=== PATIENT | female | born 1990 | race Caucasian/White ===

== ENCOUNTER 2016-08-12 23:53 | Emergency (ER) | payer OTHER ==
[~2016-08-12] VITALS: Ht 167.6 cm; Wt 111.1 kg
[~2016-08-12 23:53] MED LIST: ACETAMINOPHEN-O1 TAB PO; AMOX/CLAV POT 81 TAB PO; AMOXICILLIN500 M2 PO; AMOXICILLIN500 MG PO; AMOXIL500 MG PO; ANAPROX DS550 MG PO; ANTIBIOTIC O500 U/GM TP; AUGMENTIN 875 M1 TAB PO; AUGMENTIN 875875 MG PO; BACID PROBIOTIC1 TAB PO; BACTRIM DS 8001 TA1 PO; BACTRIM DS 8001 TAB PO; CEPHALEXIN500 M1 PO; CIPRO500 MG PO; CIPROFLOXACIN500 MG PO; DARVOCET N 1001 TAB PO; FEOSOL325 MG PO; FLAGYL500 MG PO; FLOXIN 0.3% 00.25 ML OT; IBUPROFEN IB200 M1 PO; IMODIUM A-D2 MG PO; IRON325 M1 PO; KEFLEX500 MG PO; MACROBID100 M1 PO; MICROGESTIN FE1 TA1 PO; Motrin,Rufen800 MG PO; NITROFURANTOIN100 M2 PO; NKHM; PEPCID20 MG PO; PERCOCET 325 MG1 TA2 PO; PERCOCET 325 MG1 TA7 PO; PHENERGAN25 M1 PO; PRENATAL VITAMI1 TA4 PO; PRENATAL1 TA3 PO; PRENATAL1 TA7 PO; PROVENTIL0.09 MG/AC IH; PYRIDIUM200 M1 PO; PYRIDIUM200 MG PO; TYLENOL325 M1 PO; ULTRAM50 MG PO; VICO10300 PO; VICODIN 5/500 505 MG PO; ZITHROMAX Z PA250 MG PO; ZOFRAN ODT4 MG SL; ZOFRAN4 MG PO; Zofran4 MG PO
[2016-08-13 00:35] LABS: BASO % 0.2 % (0.0-1.0); EOS # 0.1 10*3/uL (0.0-0.4); EOS % 0.7 % (1.0-4.0); HEMATOCRIT 35.3 % (37.0-47.0); HEMOGLOBIN 11.8 g/dl (12.0-16.0); LYMPH # 2.3 10*3/uL (1.3-4.4); LYMPH % 16.9 % (27.0-41.0); MEAN CELL VOLUME 90.3 fl (81.0-99.0); MEAN CORPUSCULAR HGB 30.2 pg (27.0-31.0); MEAN CORPUSCULAR HGB CONC 33.4 g/dl (33.0-37.0); MEAN PLATELET VOLUME 9.6 fl (9.6-12.3); MONO # 1.3 10*3/uL (0.1-1.0); MONO % 9.3 % (3.0-9.0); NEUT # 9.8 10*3/uL (2.3-7.9); NEUT % 72.6 % (47.0-73.0); PLATELET COUNT AUTOMATED 372 10*3/uL (130-400); RED BLOOD COUNT 3.91 10*6/uL (4.10-5.10); RED CELL DISTRI WIDTH 12.5 % (0-14.5); WHITE BLOOD COUNT 13.5 10*3/uL (4.8-10.8)
[2016-08-13 00:41] LABS: BILIRUBIN NEGATIVE (NEGATIVE); BLOOD 1+ (NEGATIVE); CLARITY SL CLOUDY (CLEAR); COLOR YELLOW (YELLOW); GLUCOSE NEGATIVE (NEGATIVE); KETONE NEGATIVE (NEGATIVE); LEUKO ESTERASE 1+ (NEGATIVE); NITRITE NEGATIVE (NEGATIVE); PH 5.5 (5.0-9.0); PROTEIN TRACE (NEGATIVE); SPECIFIC GRAVITY <= 1.005 (1.005-1.030)
[2016-08-13 00:48] LABS: EPITHELIAL CELLS 45-50; WBC 16-20 wbc/hpf (0-5)
[2016-08-13 00:49] LABS: URINE REFLEX COMMENT YES (NO)
[2016-08-13 00:54] LABS: ALKALINE PHOSPHATASE 110 U/L (45-117); BILIRUBIN, TOTAL 0.4 mg/dl (0.2-1.0); BUN 4 mg/dl (7-24); CARBON DIOXIDE 23 mmol/L (21-32); CHLORIDE 105 mmol/L (98-107); EST GLOM FILT AFRICAN AMERICAN > 60 ml/min; GLUCOSE 100 mg/dL (65-99); POTASSIUM 3.2 mmol/L (3.5-5.1); SGOT/AST 18 IU/L (3-35); SGPT/ALT 43 U/L (12-78); SODIUM 135 mmol/L (136-145); TOTAL PROTEIN 7.5 gm/dL (6.4-8.2)
[2016-08-13] MEDS ORDERED: PYRIDIUM100 MG PO (01:45)
[2016-08-13] MEDS ORDERED: BACTRIM DS 8001 TA1 PO (01:45)
== END 2016-08-13 02:45 | disposition home or self-care (01) ==
LOC: ED 23:53
PROVIDERS: Nurse Practitioner Family
DX: N30.01 Acute cystitis with hematuria (principal); F12.10 Cannabis abuse, uncomplicated; F17.200 Nicotine dependence, unspecified, uncomplicated; Z88.6 Allergy status to analgesic agent; Z88.8 Allergy status to other drugs, medicaments and biological substances; Z79.899 Other long term (current) drug therapy

== ENCOUNTER 2016-08-25 19:49 | Emergency (ER) | payer OTHER ==
[~2016-08-25] VITALS: Ht 167.6 cm; Wt 111.1 kg
[~2016-08-25 19:49] MED LIST changes: +PYRIDIUM100 MG PO
[2016-08-25 20:33] LABS: BILIRUBIN 3+ (NEGATIVE); BLOOD NEGATIVE (NEGATIVE); CLARITY CLOUDY (CLEAR); COLOR ORANGE (YELLOW); GLUCOSE NEGATIVE (NEGATIVE); KETONE TRACE (NEGATIVE); LEUKO ESTERASE NEGATIVE (NEGATIVE); NITRITE POSITIVE (NEGATIVE); PH 5.5 (5.0-9.0); PROTEIN TRACE (NEGATIVE); SPECIFIC GRAVITY 1.025 (1.005-1.030)
[2016-08-25 20:38] LABS: BACTERIA 3+; EPITHELIAL CELLS 20-25; URINE REFLEX COMMENT YES (NO)
[2016-08-25 21:09] LABS: BASO # 0.1 10*3/uL (0.0-0.1); BASO % 0.8 % (0.0-1.0); EOS # 0.2 10*3/uL (0.0-0.4); EOS % 2.2 % (1.0-4.0); HEMATOCRIT 41.4 % (37.0-47.0); HEMOGLOBIN 13.3 g/dl (12.0-16.0); LYMPH # 1.7 10*3/uL (1.3-4.4); LYMPH % 23.1 % (27.0-41.0); MEAN CORPUSCULAR HGB 29.9 pg (27.0-31.0); MEAN CORPUSCULAR HGB CONC 32.1 g/dl (33.0-37.0); MEAN PLATELET VOLUME 9.4 fl (9.6-12.3); MONO # 0.4 10*3/uL (0.1-1.0); MONO % 5.7 % (3.0-9.0); NEUT % 68.1 % (47.0-73.0); PLATELET COUNT AUTOMATED 424 10*3/uL (130-400); RED BLOOD COUNT 4.45 10*6/uL (4.10-5.10); RED CELL DISTRI WIDTH 13.2 % (0-14.5); WHITE BLOOD COUNT 7.4 10*3/uL (4.8-10.8)
[2016-08-25 21:24] LABS: BUN 8 mg/dl (7-24); CARBON DIOXIDE 27 mmol/L (21-32); CHLORIDE 105 mmol/L (98-107); EST GLOM FILT AFRICAN AMERICAN > 60 ml/min; GLUCOSE 106 mg/dL (65-99); POTASSIUM 3.8 mmol/L (3.5-5.1); SODIUM 142 mmol/L (136-145)
[2016-08-25] MEDS ORDERED: PEPCID20 MG PO (22:05)
[2016-08-25] MEDS ORDERED: CIPRO250 MG PO (22:05)
[2016-08-25] MEDS ORDERED: BENTYL10 MG PO (22:05)
== END 2016-08-25 21:49 | disposition home or self-care (01) ==
LOC: ED 19:49
PROVIDERS: Emergency Medicine Emergency Medical Services
DX: N39.0 Urinary tract infection, site not specified (principal); J45.909 Unspecified asthma, uncomplicated; F17.200 Nicotine dependence, unspecified, uncomplicated; Z98.51 Tubal ligation status; Z88.8 Allergy status to other drugs, medicaments and biological substances; Z88.6 Allergy status to analgesic agent; Z91.018 Allergy to other foods

== ENCOUNTER 2016-08-30 17:05 | Emergency (ER) | payer OTHER ==
[~2016-08-30] VITALS: Ht 167.6 cm; Wt 99.8 kg
[~2016-08-30 17:05] MED LIST changes: +BENTYL10 MG PO; +CIPRO250 MG PO
[2016-08-30 18:33] LABS: BASO # 0.1 10*3/uL (0.0-0.1); BASO % 0.9 % (0.0-1.0); EOS # 0.2 10*3/uL (0.0-0.4); EOS % 2.3 % (1.0-4.0); HEMATOCRIT 41.4 % (37.0-47.0); HEMOGLOBIN 13.3 g/dl (12.0-16.0); LYMPH # 1.3 10*3/uL (1.3-4.4); LYMPH % 20.1 % (27.0-41.0); MEAN CELL VOLUME 94.3 fl (81.0-99.0); MEAN CORPUSCULAR HGB 30.3 pg (27.0-31.0); MEAN CORPUSCULAR HGB CONC 32.1 g/dl (33.0-37.0); MEAN PLATELET VOLUME 10.7 fl (9.6-12.3); MONO # 0.4 10*3/uL (0.1-1.0); MONO % 6.8 % (3.0-9.0); NEUT # 4.5 10*3/uL (2.3-7.9); NEUT % 69.6 % (47.0-73.0); PLATELET COUNT AUTOMATED 323 10*3/uL (130-400); RED BLOOD COUNT 4.39 10*6/uL (4.10-5.10); RED CELL DISTRI WIDTH 14.2 % (0-14.5); WHITE BLOOD COUNT 6.5 10*3/uL (4.8-10.8)
[2016-08-30 19:27] LABS: ALBUMIN 3.3 gm/dl (3.1-4.5); ALKALINE PHOSPHATASE 360 U/L (45-117); BILIRUBIN, TOTAL 3.8 mg/dl (0.2-1.0); BUN 4 mg/dl (7-24); CARBON DIOXIDE 26 mmol/L (21-32); CHLORIDE 107 mmol/L (98-107); EST GLOM FILT AFRICAN AMERICAN > 60 ml/min; GLUCOSE 92 mg/dL (65-99); POTASSIUM 3.6 mmol/L (3.5-5.1); SGOT/AST 225 IU/L (3-35); SGPT/ALT 517 U/L (12-78); SODIUM 143 mmol/L (136-145); TOTAL PROTEIN 7.2 gm/dL (6.4-8.2)
[2016-08-30] MEDS ORDERED: ZOFRAN ODT4 MG SL (21:47)
== END 2016-08-30 22:00 | disposition home or self-care (01) ==
LOC: ED 17:05
PROVIDERS: Nurse Practitioner Family
DX: K80.20 Calculus of gallbladder without cholecystitis without obstruction (principal); F12.10 Cannabis abuse, uncomplicated; F17.200 Nicotine dependence, unspecified, uncomplicated; Z88.6 Allergy status to analgesic agent; Z91.018 Allergy to other foods; Z79.899 Other long term (current) drug therapy

== ENCOUNTER 2016-09-04 23:11 | Emergency (ER) | payer OTHER ==
[~2016-09-04] VITALS: Ht 167.6 cm; Wt 99.8 kg
[2016-09-04 23:53] LABS: ALBUMIN 3.6 gm/dl (3.1-4.5); ALKALINE PHOSPHATASE 365 U/L (45-117); BUN 15 mg/dl (7-24); C-REACTIVE PROTEIN < 0.29 MG/DL (0-0.3); CARBON DIOXIDE 26 mmol/L (21-32); CHLORIDE 108 mmol/L (98-107); EST GLOM FILT AFRICAN AMERICAN > 60 ml/min; GLUCOSE 91 mg/dL (65-99); POTASSIUM 4.1 mmol/L (3.5-5.1); SGOT/AST 143 IU/L (3-35); SGPT/ALT 249 U/L (12-78); SODIUM 140 mmol/L (136-145); TOTAL PROTEIN 7.8 gm/dL (6.4-8.2)
[2016-09-04 23:55] LABS: BASO # 0.1 10*3/uL (0.0-0.1); BASO % 0.6 % (0.0-1.0); EOS # 0.3 10*3/uL (0.0-0.4); EOS % 2.8 % (1.0-4.0); HEMATOCRIT 40.8 % (37.0-47.0); IG # 0.1 10*3/uL (0.0-0.1); LYMPH # 2.4 10*3/uL (1.3-4.4); LYMPH % 22.3 % (27.0-41.0); MEAN CELL VOLUME 95.1 fl (81.0-99.0); MEAN CORPUSCULAR HGB 30.3 pg (27.0-31.0); MEAN CORPUSCULAR HGB CONC 31.9 g/dl (33.0-37.0); MEAN PLATELET VOLUME 10.9 fl (9.6-12.3); MONO # 0.6 10*3/uL (0.1-1.0); MONO % 5.6 % (3.0-9.0); NEUT # 7.4 10*3/uL (2.3-7.9); NEUT % 67.8 % (47.0-73.0); PLATELET COUNT AUTOMATED 352 10*3/uL (130-400); RED BLOOD COUNT 4.29 10*6/uL (4.10-5.10); RED CELL DISTRI WIDTH 14.2 % (0-14.5); WHITE BLOOD COUNT 10.9 10*3/uL (4.8-10.8)
[2016-09-05 00:30] LABS: INTERNATIONAL NORM RATIO 0.9 (2.0-3.5)
== END 2016-09-05 04:42 | disposition short-term general hospital (02) ==
LOC: ED 23:11
PROVIDERS: Emergency Medicine Emergency Medical Services
DX: K81.9 Cholecystitis, unspecified (principal); F17.200 Nicotine dependence, unspecified, uncomplicated; Z88.6 Allergy status to analgesic agent; Z88.8 Allergy status to other drugs, medicaments and biological substances; Z91.018 Allergy to other foods

== ENCOUNTER 2016-12-01 19:09 | Emergency (ER) | payer OTHER ==
[~2016-12-01] VITALS: Ht 162.5 cm; Wt 99.8 kg
== END 2016-12-01 22:55 | disposition home or self-care (01) ==
LOC: ED 19:09
DX: N91.5 Oligomenorrhea, unspecified (principal); F17.200 Nicotine dependence, unspecified, uncomplicated; F12.10 Cannabis abuse, uncomplicated; J45.909 Unspecified asthma, uncomplicated; Z98.890 Other specified postprocedural states; Z91.018 Allergy to other foods; Z88.5 Allergy status to narcotic agent; Z88.8 Allergy status to other drugs, medicaments and biological substances

== ENCOUNTER → 2016-12-04 | Outpatient (CLI) | payer OTHER | END | disposition home or self-care (01) | LOC: LAB 13:51 | DX: N92.0 Excessive and frequent menstruation with regular cycle (principal) ==

== ENCOUNTER 2017-03-28 18:40 | Emergency (ER) | payer OTHER ==
[~2017-03-28] VITALS: Ht 167.2 cm; Wt 107.0 kg
== END 2017-03-28 19:22 | disposition home or self-care (01) ==
LOC: ED 18:40
DX: O9A.212 Injury, poisoning and certain other consequences of external causes complicating pregnancy, second trimester (principal); S30.1XXA Contusion of abdominal wall, initial encounter; Z88.8 Allergy status to other drugs, medicaments and biological substances; Z91.018 Allergy to other foods; Z87.891 Personal history of nicotine dependence; W18.39XA Other fall on same level, initial encounter; Y93.89 Activity, other specified; Y92.89 Other specified places as the place of occurrence of the external cause; Y99.8 Other external cause status

== ENCOUNTER 2017-08-16 09:15 | Emergency (ER) | payer OTHER ==
[~2017-08-16] VITALS: Ht 170.1 cm; Wt 113.4 kg
[2017-08-16 09:47] LABS: BASO % 0.2 % (0.0-1.0); EOS # 0.2 10*3/uL (0.0-0.4); EOS % 0.9 % (1.0-4.0); HEMATOCRIT 35.6 % (37.0-47.0); HEMOGLOBIN 12.1 g/dl (12.0-16.0); LYMPH # 1.6 10*3/uL (1.3-4.4); LYMPH % 7.1 % (27.0-41.0); MEAN CELL VOLUME 96.5 fl (81.0-99.0); MEAN CORPUSCULAR HGB 32.8 pg (27.0-31.0); MEAN PLATELET VOLUME 9.5 fl (9.6-12.3); MONO # 1.2 10*3/uL (0.1-1.0); MONO % 5.3 % (3.0-9.0); NEUT # 18.9 10*3/uL (2.3-7.9); NEUT % 85.9 % (47.0-73.0); PLATELET COUNT AUTOMATED 409 10*3/uL (130-400); RED BLOOD COUNT 3.69 10*6/uL (4.10-5.10); RED CELL DISTRI WIDTH 11.9 % (0-14.5)
[2017-08-16 09:54] LABS: BILIRUBIN NEGATIVE (NEGATIVE); BLOOD 3+ (NEGATIVE); CLARITY SL CLOUDY (CLEAR); COLOR YELLOW (YELLOW); GLUCOSE NEGATIVE (NEGATIVE); KETONE NEGATIVE (NEGATIVE); LEUKO ESTERASE TRACE (NEGATIVE); NITRITE NEGATIVE (NEGATIVE); PH 6.5 (5.0-9.0)
[2017-08-16 10:02] LABS: BACTERIA 1+; EPITHELIAL CELLS 41-50
[2017-08-16 10:03] LABS: ALBUMIN 2.3 gm/dl (3.1-4.5); ALKALINE PHOSPHATASE 157 U/L (45-117); BUN 13 mg/dl (7-24); CHLORIDE 106 mmol/L (98-107); CREATININE 0.69 mg/dL (0.55-1.02); POTASSIUM 3.7 mmol/L (3.5-5.1); SGOT/AST 25 IU/L (3-35); SGPT/ALT 35 U/L (12-78); SODIUM 138 mmol/L (136-145); TOTAL PROTEIN 6.5 gm/dL (6.4-8.2)
== END 2017-08-16 17:46 | disposition short-term general hospital (02) ==
LOC: ED 09:15
PROVIDERS: Student in an Organized Health Care Education/Training Program
DX: O86.20 Urinary tract infection following delivery, unspecified (principal); O99.335 Smoking (tobacco) complicating the puerperium; J45.909 Unspecified asthma, uncomplicated; F17.200 Nicotine dependence, unspecified, uncomplicated; Z91.018 Allergy to other foods; Z98.890 Other specified postprocedural states; Z88.8 Allergy status to other drugs, medicaments and biological substances; Z88.6 Allergy status to analgesic agent

== ENCOUNTER 2017-12-31 17:22 | Emergency (ER) | payer OTHER ==
[~2017-12-31] VITALS: Ht 165.1 cm; Wt 106.6 kg
[2017-12-31 18:00] LABS: BASO # 0.1 10*3/uL (0.0-0.1); BASO % 0.8 % (0.0-1.0); EOS # 0.4 10*3/uL (0.0-0.4); EOS % 3.4 % (1.0-4.0); HEMATOCRIT 45.8 % (37.0-47.0); HEMOGLOBIN 15.4 g/dl (12.0-16.0); LYMPH # 2.6 10*3/uL (1.3-4.4); LYMPH % 22.6 % (27.0-41.0); MEAN CELL VOLUME 93.1 fl (81.0-99.0); MEAN CORPUSCULAR HGB 31.3 pg (27.0-31.0); MEAN CORPUSCULAR HGB CONC 33.6 g/dl (33.0-37.0); MONO # 0.8 10*3/uL (0.1-1.0); MONO % 6.8 % (3.0-9.0); NEUT # 7.6 10*3/uL (2.3-7.9); NEUT % 66.2 % (47.0-73.0); PLATELET COUNT AUTOMATED 340 10*3/uL (130-400); RED BLOOD COUNT 4.92 10*6/uL (4.10-5.10); WHITE BLOOD COUNT 11.5 10*3/uL (4.8-10.8)
[2017-12-31 18:13] LABS: BUN 6 mg/dl (7-24); CHLORIDE 111 mmol/L (98-107); CREATININE 0.74 mg/dL (0.55-1.02); POTASSIUM 3.7 mmol/L (3.5-5.1); SODIUM 142 mmol/L (136-145)
[2017-12-31] MEDS ORDERED: AMOXICILLIN500 M2 PO (18:39)
[2017-12-31] MEDS ORDERED: IMODIUM A-D2 M2 PO (18:39)
== END 2017-12-31 18:50 | disposition home or self-care (01) ==
LOC: ED 17:22
PROVIDERS: Emergency Medicine
DX: K52.9 Noninfective gastroenteritis and colitis, unspecified (principal); H66.91 Otitis media, unspecified, right ear; R09.89 Other specified symptoms and signs involving the circulatory and respiratory systems; J45.909 Unspecified asthma, uncomplicated; F17.200 Nicotine dependence, unspecified, uncomplicated; Z91.018 Allergy to other foods; Z88.6 Allergy status to analgesic agent; Z88.8 Allergy status to other drugs, medicaments and biological substances

== ENCOUNTER 2018-01-04 13:04 | Emergency (ER) | payer OTHER ==
[~2018-01-04 13:04] MED LIST changes: +IMODIUM A-D2 M2 PO
[2018-01-04] MEDS ORDERED: IBUPROFEN600 MG PO (13:32)
[2018-01-04] MEDS ORDERED: AUGMENTIN 875875 MG PO (13:32)
== END 2018-01-04 13:49 | disposition home or self-care (01) ==
LOC: ED 13:04
DX: H66.93 Otitis media, unspecified, bilateral (principal); H60.313 Diffuse otitis externa, bilateral; F17.200 Nicotine dependence, unspecified, uncomplicated; Z98.890 Other specified postprocedural states; Z91.018 Allergy to other foods; Z88.6 Allergy status to analgesic agent; Z88.8 Allergy status to other drugs, medicaments and biological substances

== ENCOUNTER 2019-04-23 14:55 | Emergency (ER) | payer OTHER ==
[~2019-04-23] VITALS: Ht 167.6 cm; Wt 99.8 kg
[~2019-04-23 14:55] MED LIST changes: +IBUPROFEN600 MG PO; +PREDNISONE20 M1 PO
[2019-04-23] MEDS ORDERED: AMOXICILLIN500 M2 PO (16:54)
== END 2019-04-23 16:58 | disposition home or self-care (01) ==
LOC: ED 14:55
DX: J02.9 Acute pharyngitis, unspecified (principal); H92.01 Otalgia, right ear; J45.909 Unspecified asthma, uncomplicated; Z91.048 Other nonmedicinal substance allergy status; Z88.8 Allergy status to other drugs, medicaments and biological substances; Z88.6 Allergy status to analgesic agent; Z79.899 Other long term (current) drug therapy; Z79.2 Long term (current) use of antibiotics

== ENCOUNTER 2021-03-26 08:17 | Emergency (ER) | payer OTHER ==
[~2021-03-26] VITALS: Ht 167.6 cm; Wt 123.8 kg
[2021-03-26 09:02] LABS: BASO # 0.1 10*3/uL (0.0-0.1); BASO % 0.6 % (0.0-1.0); EOS # 0.4 10*3/uL (0.0-0.4); EOS % 3.9 % (1.0-4.0); HEMATOCRIT 41.7 % (37.0-47.0); LYMPH # 2.2 10*3/uL (1.3-4.4); LYMPH % 24.1 % (27.0-41.0); MEAN CELL VOLUME 96.3 fl (81.0-99.0); MEAN CORPUSCULAR HGB 31.4 pg (27.0-31.0); MEAN CORPUSCULAR HGB CONC 32.6 g/dl (33.0-37.0); MEAN PLATELET VOLUME 10.4 fl (9.6-12.3); MONO # 0.5 10*3/uL (0.1-1.0); MONO % 5.4 % (3.0-9.0); NEUT # 5.9 10*3/uL (2.3-7.9); NEUT % 65.8 % (47.0-73.0); PLATELET COUNT AUTOMATED 288 10*3/uL (130-400); RED BLOOD COUNT 4.33 10*6/uL (4.10-5.10); RED CELL DISTRI WIDTH 11.7 % (0-14.5); WHITE BLOOD COUNT 8.9 10*3/uL (4.8-10.8)
[2021-03-26 09:22] LABS: ALKALINE PHOSPHATASE 82 U/L (45-117); BUN 11 mg/dl (7-24); CHLORIDE 111 mmol/L (98-107); CREATININE 0.67 mg/dL (0.55-1.02); POTASSIUM 3.9 mmol/L (3.5-5.1); SGOT/AST 14 IU/L (3-35); SGPT/ALT 21 U/L (12-78); SODIUM 138 mmol/L (136-145); TOTAL PROTEIN 6.9 gm/dL (6.4-8.2)
[2021-03-26 09:44] LABS: BETA-HCG, QUANT < 1.0 mIU/mL (1-3)
[2021-03-26] MEDS ORDERED: Motrin,Rufen800 MG PO (12:04)
== END 2021-03-26 12:05 | disposition home or self-care (01) ==
LOC: ED 08:17
PROVIDERS: Emergency Medicine
DX: S99.911A Unspecified injury of right ankle, initial encounter (principal); Z91.018 Allergy to other foods; Z88.8 Allergy status to other drugs, medicaments and biological substances; W18.39XA Other fall on same level, initial encounter; Y93.89 Activity, other specified; Y92.89 Other specified places as the place of occurrence of the external cause; Y99.8 Other external cause status

== ENCOUNTER 2022-02-05 10:22 | Emergency (ER) | payer OTHER ==
[~2022-02-05] VITALS: Ht 167.6 cm; Wt 117.5 kg
[2022-02-05] MEDS ORDERED: IBUPROFEN600 MG PO (12:23)
[2022-02-05] MEDS ORDERED: AMOXICILLIN500 M2 PO (12:23)
== END 2022-02-05 12:44 | disposition home or self-care (01) ==
LOC: ED 10:22
DX: J02.9 Acute pharyngitis, unspecified (principal); R05.9 Cough, unspecified; R09.89 Other specified symptoms and signs involving the circulatory and respiratory systems; Z91.018 Allergy to other foods; Z88.8 Allergy status to other drugs, medicaments and biological substances; Z98.890 Other specified postprocedural states; Z87.891 Personal history of nicotine dependence

== ENCOUNTER 2022-06-19 18:40 | Emergency (ER) | payer MEDICAID ==
[~2022-06-19] VITALS: Ht 167.6 cm; Wt 117.9 kg
== END 2022-06-19 20:46 | disposition home or self-care (01) ==
LOC: ED 18:40
DX: J06.9 Acute upper respiratory infection, unspecified (principal); R05.9 Cough, unspecified; Z91.018 Allergy to other foods; Z88.5 Allergy status to narcotic agent; Z88.8 Allergy status to other drugs, medicaments and biological substances; Z98.890 Other specified postprocedural states; F17.200 Nicotine dependence, unspecified, uncomplicated; J45.909 Unspecified asthma, uncomplicated; F32.A Depression, unspecified; Z20.822 Contact with and (suspected) exposure to COVID-19

== ENCOUNTER 2022-06-24 11:29 | Emergency (ER) | payer MEDICAID ==
[~2022-06-24] VITALS: Wt 117.9 kg
[2022-06-24] MEDS ORDERED: AMOXICILLIN500 M3 PO (11:56)
== END 2022-06-24 12:00 | disposition home or self-care (01) ==
LOC: ED 11:29
DX: H66.91 Otitis media, unspecified, right ear (principal); J45.909 Unspecified asthma, uncomplicated; F32.A Depression, unspecified; Z91.018 Allergy to other foods; Z88.5 Allergy status to narcotic agent; Z88.8 Allergy status to other drugs, medicaments and biological substances; Z98.890 Other specified postprocedural states; F17.200 Nicotine dependence, unspecified, uncomplicated; F12.90 Cannabis use, unspecified, uncomplicated

== ENCOUNTER 2024-10-09 09:26 | Inpatient (IN) | payer OTHER ==
[~2024-10-09] VITALS: Ht 167.6 cm; Wt 125.3 kg
[~2024-10-09 09:26] MED LIST changes: +AMOXICILLIN500 M3 PO; +Ondansetron4 MG SL
[2024-10-09 09:30] VITALS: BP 130/79
[2024-10-09 09:55] LABS: BASO # 0.1 10*3/uL (0.0-0.1); BASO % 0.6 % (0.0-1.0); EOS # 0.2 10*3/uL (0.0-0.4); EOS % 2.0 % (1.0-4.0); MEAN CELL VOLUME 95.7 fl (81.0-99.0); MEAN CORPUSCULAR HGB 31.7 pg (27.0-31.0); MEAN PLATELET VOLUME 10.2 fl (9.6-12.3); MONO # 0.4 10*3/uL (0.1-1.0); MONO % 4.3 % (3.0-9.0); NEUT # 6.4 10*3/uL (2.3-7.9); NEUT % 62.1 % (47.0-73.0); NUCLEATED RED BLOOD CELL 0.0 % (0.0-0.0); NUCLEATED RED BLOOD CELL 0.0 10*3/uL (0.0-0.0); PLATELET COUNT AUTOMATED 290 10*3/uL (130-400); RED CELL DISTRI WIDTH 11.6 % (0-14.5)
[2024-10-09 10:18] LABS: BUN 6 mg/dl (9-23)
[2024-10-09 11:40] VITALS: BP 126/73
[2024-10-09 12:30] VITALS: BP 115/66
[2024-10-09 14:44] VITALS: BP 104/55
[2024-10-09 18:25] VITALS: BP 113/67
[2024-10-09] MEDS ORDERED: SODIUM CHLORIDE 0.9% 1,000 ML IV SCH (20:50)
[2024-10-09 21:00] LABS: BASO # 0.1 10*3/uL (0.0-0.1); BASO % 0.8 % (0.0-1.0); EOS # 0.2 10*3/uL (0.0-0.4); EOS % 2.1 % (1.0-4.0); MEAN CELL VOLUME 95.9 fl (81.0-99.0); MEAN CORPUSCULAR HGB 32.0 pg (27.0-31.0); MEAN PLATELET VOLUME 10.1 fl (9.6-12.3); MONO # 0.6 10*3/uL (0.1-1.0); MONO % 7.2 % (3.0-9.0); NEUT # 3.6 10*3/uL (2.3-7.9); NEUT % 46.0 % (47.0-73.0); NUCLEATED RED BLOOD CELL 0.0 % (0.0-0.0); NUCLEATED RED BLOOD CELL 0.0 10*3/uL (0.0-0.0); PLATELET COUNT AUTOMATED 257 10*3/uL (130-400); RED CELL DISTRI WIDTH 11.8 % (0-14.5)
[2024-10-09 21:11] VITALS: BP 109/82
[2024-10-10 00:11] VITALS: BP 117/82
[2024-10-10 02:15] VITALS: BP 156/88
[2024-10-10] MEDS ORDERED: Regadenoson 0.4 MG/5 ML SYR IV ONE (06:24)
[2024-10-10 07:32] LABS: BUN 9 mg/dl (9-23)
[2024-10-10 08:00] VITALS: BP 146/87
[2024-10-10 09:09] LABS: LDL CHOLESTEROL 81 mg/dL (9-159)
[2024-10-10] MEDS ORDERED: Ondansetron Hydrochloride 4 MG/2 ML VIAL ONE (09:18)
[2024-10-10] MEDS ORDERED: Ondansetron Hydrochloride 4 MG/2 ML VIAL IV SCH (09:40)
[2024-10-10 12:00] VITALS: BP 122/67
== END 2024-10-10 14:00 | disposition home or self-care (01) | DRG 206 ==
LOC: ED 09:26 → EDHOLD 14:50 → 4E 14:50
PROVIDERS: Internal Medicine; ADMIT Internal Medicine; ATTEND Internal Medicine
PROC: 4A02XM4 Measurement of Cardiac Total Activity, External Approach (ICD-10-PCS; principal; 2024-10-10)
PROC: 3E073KZ Introduction of Other Diagnostic Substance into Coronary Artery, Percutaneous Approach (ICD-10-PCS; 2024-10-10)
DX: M94.0 Chondrocostal junction syndrome [Tietze] (principal); F17.210 Nicotine dependence, cigarettes, uncomplicated; Z80.0 Family history of malignant neoplasm of digestive organs; Z80.1 Family history of malignant neoplasm of trachea, bronchus and lung; Z71.6 Tobacco abuse counseling; Z88.8 Allergy status to other drugs, medicaments and biological substances; Z63.4 Disappearance and death of family member; Z82.49 Family history of ischemic heart disease and other diseases of the circulatory system

== ENCOUNTER 2024-11-16 16:41 | Emergency (ER) | payer OTHER ==
[~2024-11-16] VITALS: Ht 165.1 cm; Wt 125.2 kg
== END 2024-11-16 17:51 | disposition home or self-care (01) ==
LOC: ED 16:41
DX: R42 Dizziness and giddiness (principal); F17.200 Nicotine dependence, unspecified, uncomplicated; Z91.018 Allergy to other foods; Z88.8 Allergy status to other drugs, medicaments and biological substances; Z88.6 Allergy status to analgesic agent; Z98.890 Other specified postprocedural states

== ENCOUNTER 2025-04-04 19:10 | Emergency (ER) | payer SELFPAY ==
[~2025-04-04] VITALS: Ht 167.6 cm; Wt 113.9 kg
[2025-04-04] MEDS ORDERED: Ondansetron4 MG PO (19:40)
== END 2025-04-04 19:47 | disposition home or self-care (01) ==
LOC: ED 19:10
DX: B34.9 Viral infection, unspecified (principal); Z20.822 Contact with and (suspected) exposure to COVID-19; J45.909 Unspecified asthma, uncomplicated; F31.9 Bipolar disorder, unspecified; F12.90 Cannabis use, unspecified, uncomplicated; F17.210 Nicotine dependence, cigarettes, uncomplicated; Z98.890 Other specified postprocedural states; Z91.018 Allergy to other foods; Z88.5 Allergy status to narcotic agent; Z90.49 Acquired absence of other specified parts of digestive tract